=== PATIENT | female | born 1950 | race Caucasian/White ===

== ENCOUNTER 2020-02-17 15:41 | Observation (INO) | payer MEDICARE ==
[2020-02-17] MEDS ORDERED: KETOROLAC 30 MG/ML VIAL IVP STA (16:09)
[2020-02-17] MEDS ORDERED: ONDANSETRON 4 MG/2 ML VIAL IVP STA (16:09)
--- NOTE | 2020-02-17 16:11 | ED Physician Documentation ---
PD HPI ABD PAIN - Stated complaint Stated Complaint: ABD PX, NAUSEA, FEVER - Chief complaint Chief Complaint: Abd Pain - History obtained from History obtained from: Patient (This is a very pleasant 69-year-old woman status post remote cholecystectomy, otherwise very healthy who developed central abdominal pain that woke her up at 2 AM subsequently the pain radiated to the right lower quadrant and was associated with nausea but no vomiting and fever. She denies any urinary complaints or trouble with bowel movements.) Review of Systems Ten Systems: 10 systems reviewed and negative Constitutional: reports: Fever, Chills Cardiac: denies: Chest pain / pressure, Palpitations Respiratory: denies: Dyspnea, Cough PD PAST MEDICAL HISTORY - Present Medications Home Medications: Ambulatory Orders Medication Instructions Recorded Confirmed No Known Home Medications 02/17/20 02/17/20 - Allergies Allergies/Adverse Reactions: Allergies Allergy/AdvReac Type Severity Reaction Status Date / Time Iodinated Contrast Media AdvReac Hives Verified 02/17/20 15:56 PD ED PE NORMAL - Vitals Vital signs reviewed: Yes - General General: Alert and oriented X 3, No acute distress - HEENT HEENT: PERRL, EOMI - Neck Neck: Supple, no meningeal sign, No bony TTP - Cardiac Cardiac: RRR, No murmur - Respiratory Respiratory: No respiratory distress, Clear bilaterally - Abdomen Abdomen: Normal bowel sounds, Soft, Other (She is focally exquisitely tender in the right lower quadrant with positive Rovsing and psoas sign.) - Back Back: No CVA TTP, No spinal TTP - Derm Derm: Normal color, Warm and dry - Extremities Extremities: No edema, No calf tenderness / cord - Neuro Neuro: Alert and oriented X 3, Normal speech Results - Vitals Vitals: Vital Signs - 24 hr 02/17/20 02/17/20 15:46 19:20 Temperature 37.8 C H Heart Rate 100 98 Respiratory 20 16 Rate Blood Pressure 136/82 H 141/79 H O2 Saturation 98 99 Oxygen O2 Source Room air - Labs Labs: Laboratory Tests 02/17/20 02/17/20 02/17/20 16:30 17:30 17:30 WBC 10.6 RBC 4.14 L Hgb 12.2 Hct 38.0 MCV 91.8 MCH 29.5 MCHC 32.1 RDW 13.4 Plt Count 182 MPV 11.1 H Neut # (Auto) 8.5 H Lymph # (Auto) 1.3 L [place] # (Auto) 0.8 Eos # (Auto) 0.0 Baso # (Auto) 0.0 Absolute Nucleated RBC 0.00 Nucleated RBC % 0.0 Sodium 137 Potassium 3.5 Chloride 108 Carbon Dioxide 21 Anion Gap 8.0 BUN 14 Creatinine 0.5 Estimated GFR (MDRD) 123 Glucose 101 H Calcium 8.9 Total Bilirubin 1.0 AST 13 ALT 11 Alkaline Phosphatase 52 Total Protein 7.0 Albumin 4.0 Globulin 3.0 Albumin/Globulin Ratio 1.3 Lipase 26 Urine Color YELLOW Urine Clarity CLEAR Urine pH 6.0 Ur Specific [place] >=1.030 H Urine Protein NEGATIVE Urine Glucose (UA) NEGATIVE Urine Ketones >=80 H Urine Occult Blood NEGATIVE Urine Nitrite NEGATIVE Urine Bilirubin NEGATIVE Urine Urobilinogen 0.2 (NORMAL) Ur Leukocyte Esterase NEGATIVE Ur Microscopic Review NOT INDICATED Urine Culture Comments NOT INDICATED - Rads (name of study) CT abdomen and pelvis done without IV contrast due 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 Spoke with the on-call surgeon, Dr. Barraza around 7:30 PM who will come in to see the patient. Requested Shannan in the interim. Departure - Departure Disposition: ED Transfer to [facility] Clinical Impression: Appendicitis Qualifiers: Appendicitis type: acute appendicitis Acute appendicitis type: with localized peritonitis Appendicitis gangrene presence: without gangrene Appendicitis perforation presence: without perforation Appendicitis abscess presence: without abscess Qualified Code(s): K35.30 - Acute appendicitis with localized peritonitis, without perforation or gangrene Condition: Stable
[2020-02-17 16:43] LABS: GLUCOSE, URINE (UA) NEGATIVE (NEGATIVE); KETONES,URINE (UA) >=80 mg/dL (NEGATIVE); LEUKOCYTE ESTERASE, URINE NEGATIVE (NEGATIVE); NITRITE,URINE NEGATIVE (NEGATIVE); OCCULT BLOOD,URINE NEGATIVE (NEGATIVE); PROTEIN,URINE NEGATIVE (NEGATIVE); UROBILINOGEN,URINE 0.2 (NORMAL) E.U./dL (NORMAL)
[2020-02-17 16:47] LABS: BILIRUBIN,URINE NEGATIVE (NEGATIVE); CLARITY,URINE CLEAR (CLEAR); ICTOTEST,URINE NEGATIVE
[2020-02-17] MEDS ORDERED: IOVERSOL 320 100 ML VIAL IVP ONE (16:55)
[2020-02-17] MEDS ORDERED: SODIUM CHLORIDE 0.9% 1,000 ML IV ONE (16:59)
[2020-02-17 17:39] LABS: BASOPHILS % (AUTO) 0.3 %; EOSINOPHILS % (AUTO) 0.3 %; HGB - HEMOGLOBIN 12.2 g/dL (12.0-16.0); LYMPHOCYTES # (AUTO) 1.3 10^3/uL (1.5-3.5); LYMPHOCYTES % (AUTO) 11.8 %; MEAN CORPUSCULAR HEMOGLOBIN 29.5 pg (27.0-31.0); MEAN CORPUSCULAR HGB CONC 32.1 g/dL (32.0-36.0); MEAN CORPUSCULAR VOLUME 91.8 fL (81.0-99.0); MEAN PLATELET VOLUME 11.1 fL (7.9-10.8); MONOCYTES # (AUTO) 0.8 10^3/uL (0.0-1.0); MONOCYTES % (AUTO) 7.2 %; NEUTROPHILS # (AUTO) 8.5 10^3/uL (1.5-6.6); NEUTROPHILS % (AUTO) 80.1 %; PLT - PLATELET COUNT 182 10^3/uL (130-450); RED BLOOD COUNT 4.14 10^6/uL (4.20-5.40); RED CELL DISTRIBUTION WIDTH 13.4 % (12.0-15.0); WHITE BLOOD COUNT 10.6 x10^3/uL (4.8-10.8)
[2020-02-17 17:55] LABS: ALBUMIN/GLOBULIN RATIO 1.3 (1.0-2.2); CALCIUM 8.9 mg/dL (8.5-10.3); CREATININE 0.5 mg/dL (0.4-1.0)
--- NOTE | 2020-02-17 19:26 | CT Report ---
Reason: RLQ pain Procedure Date: 02/17/2020 Accession Number: [id number] / [id number] Procedure: CT - Abdomen/Pelvis WO CPT Code: Final Report FULL RESULT: EXAM: CT ABDOMEN AND PELVIS (CT KUB) EXAM DATE: 02/17/2020 06:34 PM. CLINICAL HISTORY: RLQ pain. COMPARISONS: None. TECHNIQUE: Routine axial helical CT imaging was performed through the abdomen and pelvis without IV contrast. Reconstructions: Coronal and sagittal. In accordance with CT protocol optimization, one or more of the following dose reduction techniques were utilized for this exam: automated exposure control, adjustment of mA and/or KV based on patient size, or use of iterative reconstructive technique. FINDINGS: Limited evaluation of solid abdominal organs without intravenous contrast. Lung Bases: Unremarkable. Right Kidney/Ureter: There are 2-3 punctate nonobstructing stones measuring about 2 mm. No obstructing stone or hydronephrosis. Left Kidney/Ureter: There is a punctate 2 mm nonobstructing stone inferiorly. No obstructing stone or hydronephrosis. Other Solid Organs: Noncontrast images of the solid organs are grossly unremarkable. Gallbladder/Bile Ducts: Cholecystectomy. Peritoneal Cavity: The appendix is dilated with surrounding inflammation. No abscess. No free fluid or free air. Mild diverticulosis. Small hiatal hernia. No evidence of a bowel obstruction. Pelvic Organs: No bladder stone or wall thickening. The uterus and adnexa are unremarkable. Vasculature: Minimal atherosclerosis. No aortic aneurysm. Other: None. IMPRESSION: Acute appendicitis. RADIA
[2020-02-17] MEDS ORDERED: PIPERACILLIN/TAZOBACTAM 3.375 GM in SODIUM CHLORIDE 0.9% MINIBAG 100 ML IV STA (19:37)
--- NOTE | 2020-02-17 20:17 | CONSULTATION NOTE ---
Referring Provider Name of Referring Provider:: ED Dr. Vergara Consult Date: 02/17/20 Chief Complaint - Chief Complaint Chief Complaint: abd pain History of Present Illness - History of Present Illness HPI Comment/Other: Pleasant 69yo F awoken early this AM with pain in her lower right abdomen. It progressed through the day. Only similar pain she has experienced was kidney stones but it is not the same. She came in for evaluation. CT A/P shows appendicitis. No leukocytosis or fevers but diffusely tender, significantly in RLQ. Only abd surgery was a lap kathy which she tolerated well. No SOB walking up a flight of stairs. No history of anesthesia or bleeding issues in her or family members. History - Past Surgical History General: reports: Cholecystectomy Meds/Allgy - Home Medications Home Medications: Ambulatory Orders Medication Instructions Recorded Confirmed No Known Home Medications 02/17/20 02/17/20 - Allergies Allergies/Adverse Reactions: Allergies Allergy/AdvReac Type Severity Reaction Status Date / Time Iodinated Contrast Media AdvReac Hives Verified 02/17/20 15:56 Review of Systems - Gastrointestinal Gastrointestinal: reports: Abdominal pain - All Other Systems All Other Systems: reports: Reviewed and negative Exam - Vital Signs Reviewed Vital Signs: Yes Vital Signs: Vital Signs x48h Temp Pulse Resp BP Pulse Ox 02/17/20 19:20 98 16 141/79 H 99 02/17/20 15:46 37.8 C H 100 20 136/82 H 98 - Physical Exam Comments/Other: AAO, NAD, overweight female EOMI, MMM unlabored RA soft, non-distended, mild diffuse tenderness with increased focal pain over RLQ MAEW skin warm and dry Conclusion and Plan - Lab Results Laboratory Results 02/17/20 17:30: Sodium 137, Potassium 3.5, Chloride 108, Carbon Dioxide 21, Anion Gap 8.0, BUN 14, Creatinine 0.5, Estimated GFR (MDRD) 123, Glucose 101 H, Calcium 8.9, Total Bilirubin 1.0, AST 13, ALT 11, Alkaline Phosphatase 52, Total Protein 7.0, Albumin 4.0, Globulin 3.0, Albumin/Globulin Ratio 1.3, Lipase 26 02/17/20 17:30: WBC 10.6, RBC 4.14 L, Hgb 12.2, Hct 38.0, MCV 91.8, MCH 29.5, MCHC 32.1, RDW 13.4, Plt Count 182, MPV 11.1 H, Neut # (Auto) 8.5 H, Lymph # (Auto) 1.3 L, [place] # (Auto) 0.8, Eos # (Auto) 0.0, Baso # (Auto) 0.0, Absolute Nucleated RBC 0.00, Nucleated RBC % 0.0 02/17/20 16:30: Urine Color YELLOW, Urine Clarity CLEAR, Urine pH 6.0, Ur Specific [place] >=1.030 H, Urine Protein NEGATIVE, Urine Glucose (UA) NEGATIVE, Urine Ketones >=80 H, Urine Occult Blood NEGATIVE, Urine Nitrite NEGATIVE, Urine Bilirubin NEGATIVE, Urine Urobilinogen 0.2 (NORMAL), Ur Leukocyte Esterase NEGAT NANCY, Ur Microscopic Review NOT INDICATED, Urine Culture Comments NOT INDICATED - Diagnostic Imaging Results Diagnostic Imaging Results: positive: Final report reviewed, Read contemporaneously - Diagnosis Diagnosis: Appendicitis - Plan Plan: - acute appendicitis, thoroughly discussed options especially given setting of COVID crisis including surgery versus antibiotics and close follow up --> given her diffuse abd pain, I am hesitant to rely on antibiotics and think it will prolong exposures and resource utilization by requiring more hospital time up front then a likely surgery down the line --> will admit, angela started in ED, plan for lap appendectomy in the AM with likely discharge after --> all R/B/A discussed and pt wishes to proceed with plan - CLD now, NPO after midnight - prn anti-emetics and pain meds
[2020-02-17] MEDS ORDERED: KETOROLAC 15 MG/ML VIAL IVP PRN (20:21)
[2020-02-17] MEDS ORDERED: ACETAMINOPHEN 325 MG TABLET PO PRN (20:21)
[2020-02-17] MEDS ORDERED: MORPHINE 2 MG/ML CARPUJECT IVP PRN (20:21)
[2020-02-17] MEDS ORDERED: SODIUM CHLORIDE FLUSH 0.9% 10 ML SYRINGE IVP PRN (20:21)
[2020-02-17] MEDS ORDERED: ONDANSETRON 4 MG/2 ML VIAL IVP PRN (20:25)
[2020-02-17] MEDS: SODIUM CHLORIDE 0.9% 1,000 ML IV SCH (21:33)
[2020-02-17] MEDS: SODIUM CHLORIDE FLUSH 0.9% 10 ML SYRINGE IVP SCH (21:33)
[2020-02-17] MEDS: PIPERACILLIN/TAZOBACTAM 3.375 GM in SODIUM CHLORIDE 0.9% MINIBAG 100 ML IV SCH (23:48)
[2020-02-18] MEDS: SODIUM CHLORIDE 0.9% 1,000 ML IV SCH (07:05)
[2020-02-18] MEDS ORDERED: LIDOCAINE 1%-EPI 1:100000 20 ML MDV ONE (07:31)
--- NOTE | 2020-02-18 07:54 | PHARMACY PROGRESS NOTE ---
- Best Possible Medication History Admit Date and Time: 02/17/202020 Processed by: Nursing Medication History completed: Yes As the person ultimately responsible for medication therapy, providers are able to order a medication from an existing home medication list in [facility] via the "Reconcile Routine" prior to Confirmation of that medication by windows desktop support. Such practice is discouraged except when the physician, in their clinical judgment, deems that a medical need exists for a medication without regard to previous use.
[2020-02-18] MEDS: PIPERACILLIN/TAZOBACTAM 3.375 GM in SODIUM CHLORIDE 0.9% MINIBAG 100 ML IV SCH (07:58)
[2020-02-18] MEDS: SODIUM CHLORIDE FLUSH 0.9% 10 ML SYRINGE IVP SCH (07:59)
--- NOTE | 2020-02-18 08:25 | ANESTHESIA ---
Pre-Anesthesia VS, & Labs - Diagnosis Diagnosis Appendicitis - Procedure Laparoscopic appendectomy Vital Signs: Temp Pulse Resp BP Pulse Ox 36.7 C 88 16 140/72 H 94 02/18/20 07:20 02/18/20 07:20 02/18/20 07:20 02/18/20 07:20 02/18/20 07:20 Height 5 ft 6.5 in Weight (kg) 73.5 kg Body Mass Index 25.7 - NPO >8 hours - Is Patient ?: No - Lab Results Current Lab Results: Laboratory Tests 02/17/20 17:30: Sodium 137, Potassium 3.5, Chloride 108, Carbon Dioxide 21, Anion Gap 8.0, BUN 14, Creatinine 0.5, Estimated GFR (MDRD) 123, Glucose 101 H, Calcium 8.9, Total Bilirubin 1.0, AST 13, ALT 11, Alkaline Phosphatase 52, Total Protein 7.0, Albumin 4.0, Globulin 3.0, Albumin/Globulin Ratio 1.3, Lipase 26 02/17/20 17:30: WBC 10.6, RBC 4.14 L, Hgb 12.2, Hct 38.0, MCV 91.8, MCH 29.5, MCHC 32.1, RDW 13.4, Plt Count 182, MPV 11.1 H, Neut # (Auto) 8.5 H, Lymph # (Auto) 1.3 L, [place] # (Auto) 0.8, Eos # (Auto) 0.0, Baso # (Auto) 0.0, Absolute Nucleated RBC 0.00, Nucleated RBC % 0.0 Lab results reviewed: Yes Fish Bones: 02/17/20 17:30 02/17/20 17:30 Home Medications and Allergies Home Medications: Ambulatory Orders No Known Home Medications 02/17/20 Active Medications Acetaminophen (Tylenol) 325 mg PO Q4HR PRN PRN Reason: Pain or Fever > 38C (100.4F) Piperacillin Sod/Tazobactam (Sod 3.375 gm/ Sodium Chloride) 100 mls @ 25 mls/hr IV Q8H [facility] Last Admin: 02/18/20 07:58 Dose: 25 mls/hr Sodium Chloride (Normal Saline 0.9%) 1,000 mls @ 100 mls/hr IV .Q10H [facility] Last Admin: 02/18/20 07:05 Dose: 100 mls/hr Ketorolac Tromethamine (Toradol Inj (15mg)) 15 mg IVP Q6HR PRN PRN Reason: PAIN Stop: 02/22/20 20:20 Last Admin: 02/17/20 23:58 Dose: 15 mg Morphine Sulfate (Morphine (Carpuject)) 2 mg IVP Q2HR PRN PRN Reason: PAIN Ondansetron HCl (Zofran Inj) 4 mg IVP Q4HR PRN PRN Reason: Nausea / Vomiting Last Admin: 02/18/20 07:04 Dose: 4 mg Sodium Chloride (Normal Saline Flush 0.9%) 10 ml IVP 0100,0900,1700 SIVAN Last Admin: 02/18/20 07:59 Dose: 10 ml Sodium Chloride (Normal Saline Flush 0.9%) 10 ml IVP PRN PRN PRN Reason: NEEDED PER PROVIDER ORDERS No Known Home Medications 02/17/20 Allergies/Adverse Reactions: Allergies Allergy/AdvReac Type Severity Reaction Status Date / Time Iodinated Contrast Media AdvReac Hives Verified 02/17/20 15:56 Anes History & Medical History - Anesthetic History Anesthesia Complications: reports: No previous complications Family history of Anesthesia Complications: Denies Family history of Malignant Hyperthermia: Denies - Medical History Cardiovascular: reports: None Pulmonary: reports: None Gastrointestinal: reports: None Urinary: reports: None Neuro: reports: None Musculoskeletal: reports: None Endocrine/Autoimmune: reports: None Blood Disorders: reports: None Skin: reports: None Smoking Status: Never smoker - Surgical History General: Cholecystectomy Exam General: Alert, Oriented x3, Cooperative Dental: WNL Mouth Openin Fingerbreadth Neck Mobility: Normal Mallampati classification: II Thyromental Distance: greater than 6 cm Respiratory: Lungs clear, Normal breath sounds, No respiratory distress, No accessory muscle use Cardiovascular: Regular rate Neurological: Normal speech Mental/Cognitive Status: Alert/Oriented X3, Normal for patient Cognitive Status: Within normal limits Plan Anesthesia Type: General Consent for Procedure(s) Verified and Reviewed: Yes Code Status: Attempt Resuscitation ASA classification: 2-Mild systemic disease Is this case an emergency?: No
[2020-02-18] MEDS ORDERED: KETOROLAC 30 MG/ML VIAL IVP ONE (08:57)
[2020-02-18] MEDS ORDERED: DEXAMETHASONE 4 MG/ML VIAL IVP ONE (08:57)
[2020-02-18] MEDS ORDERED: PROPOFOL 200 MG/20 ML VIAL IVP ONE (08:57)
[2020-02-18] MEDS ORDERED: ROCURONIUM 50 MG/5 ML VIAL IVP ONE (08:57)
[2020-02-18] MEDS ORDERED: NEOSTIGMINE 1 MG/1 ML 10 ML MDV IVP ONE (08:57)
[2020-02-18] MEDS ORDERED: MIDAZOLAM 2 MG/2 ML VIAL IVP ONE (08:57)
[2020-02-18] MEDS ORDERED: fentaNYL 100 MCG/2 ML VIAL IVP ONE (08:57)
[2020-02-18] MEDS ORDERED: ONDANSETRON 4 MG/2 ML VIAL IVP ONE (08:57)
[2020-02-18] MEDS ORDERED: LIDOCAINE-MPF 2% 5 ML VIAL IM ONE (08:57)
[2020-02-18] MEDS ORDERED: GLYCOPYRROLATE 1 MG/5 ML VIAL IVP ONE (08:57)
[2020-02-18] MEDS ORDERED: LACTATED RINGERS 1,000 ML IV ONE ×2 (08:57→10:55)
[2020-02-18] MEDS ORDERED: LIDOCAINE 1%-EPI 1:100000 20 ML MDV SUBQ ONE (09:33)
[2020-02-18] MEDS ORDERED: HYDROcod/ACETAM 5/325 MG TABLET PO PRN (10:25)
--- NOTE | 2020-02-18 10:34 | OPERATIVE REPORT ---
Operative Report - General Admit Date: 02/17/20 Pre-Op Diagnosis: Appendicitis Procedure Performed: Laparoscopic Appenectomy Laparoscopic Lysis of Adhesions Post Op Diagnosis: same - Procedure Note Primary Surgeon: Esme Barraza MD Anesthesia Provider: Andrea Rodriguez CRNA Anesthesia Technique: General ET tube Pathology: appendix Estimated Blood Loss (mL): 2 Indications: 69yo F with progressive abdominal pain found to have appendicitis. All risks, benefits, and alternatives to surgery are discussed and pt wishes to proceed. Findings: inflamed retrocecal appendix with focal necrosis near base; straw colored fluid in pelvis Complications: none - Other Other Information/Narrative: The patient was taken to the operating room and placed on the operating table in supine position. The abdomen was prepped and draped in sterile fashion and a timeout performed with the team present. Using a 15 blade scalpel and after infiltration with local anesthesia, a small 5 mm incision was made just to the left of the umbilicus. Using a 5 mm Optiview camera port, the laparoscope was inserted into the abdomen. Once confirmed to be within the peritoneum, the abdomen was insufflated with air. Diagnostic laparoscopy showed no injury from initial trocar placement. Under direct vision and after infiltration with local anesthesia, an additional 5 mm trocar was then placed in the midline just above the pubic hairline and a 12 mm trocar was then placed in the left lower quadrant. The patient was then placed in left side down and in Trendelenberg position. The small bowel was retracted to the left side of the patient. An adhesion along the right abdominal wall was taken down with cautery. The appendix was identified at the base of the cecum in a retrocecal position. It was dark and inflamed with focal necrosis near the base. Cautery was used to release the retroperitoneal attachments and separate the inflamed appendix and mesoappendix from the cecum. Once freed, the appendix was grasped with a blunt grasper. Using a [place] dissector, a window was made between the mesoappendix and the appendix itself. Using an Endo BERTHA stapler with a tissue load, the appendix was transected out at the base below the area of necrosis. Using a vascular load, the mesoappendix was then transected with the Endo BERTHA stapler as well. The staple lines were noted to be intact with no evidence of leakage or bleeding. The appendix was placed into an EndoCatch retrieval bag and removed through the 12 mm port without any difficulty. Straw colored fluid and minimal blood was suctioned free and irrigated thoroughly. The 12mm port site fascia was closed using an EndoClose device and an 0-vicryl suture. The remainder of the local anesthesia was injected over each of the fascial incision sites. The secondary trocars were then removed under direct vision noting no bleeding. The abdomen was allowed to desufflate fully and the final trocar was removed. The skin incisions were then closed using 4-0 Monocryl in an interrupted subcuticular fashion. All counts were correct at the end of the procedure. The abdomen was cleaned and dried. Dermabond was placed over the incisions. The patient was awakened and taken to postanesthesia care unit in stable condition.
[2020-02-18] MEDS ORDERED: ACETAMINOPHEN 1,000 MG/100 ML 100 ML IV ONE (10:44)
[2020-02-18 13:12] VITALS: BP 122/62
--- NOTE | 2020-02-20 11:27 | MISCELLANEOUS PROVIDER NOTE ---
Miscellaneous Provider Note - - Note: SURGERY PROGRESS NOTE 02/18/20 Doing well, no issues overnight. AAO, NAD EOMI, MMM unlabored RA soft, non-distended, moderate ttp abdomen MAEW NPO, MIVFs, zosyn scheduled. Plan for lap appendectomy today. No further questions. Informed consent signed.
--- NOTE | 2020-02-20 11:29 | DISCHARGE SUMMARY ---
"Discharge Summary Admit Date: 02/17/20 Discharge Date: 02/18/20 Discharging Provider: Madi Code Status: Attempt Resuscitation Condition at Discharge: Stable Discharge Disposition: 01 Home, Self Care - HPI History of Present Illness: One day history of increasing abdominal pain. - CONSULTS | PROCEDURES Procedures: Laparoscopic Appendectomy - HOSPITAL COURSE Hospital Course: Presents with one day of abdominal pain, increasing through day. CT shows appendicitis. Admitted overnight and antibiotics started. Underwent lap appendectomy next morning and discharged post op once criteria met. - ALLERGIES Allergies/Adverse Reactions: Allergies Allergy/AdvReac Type Severity Reaction Status Date / Time Iodinated Contrast Media AdvReac Hives Verified 02/17/20 15:56 - MEDICATIONS Home Medications: Ambulatory Orders Medication Instructions Recorded Confirmed Docusate Sodium 100 mg PO BID #60 capsule 02/18/20 Ibuprofen 800 mg PO TID #60 tablet 02/18/20 oxyCODONE [Roxicodone] 5 mg PO Q6H PRN #20 tablet 02/18/20 - LABS Result Diagrams: 02/17/20 17:30 02/17/20 17:30 - FOLLOW UP Follow Up: Phone visit with Dr. Barraza in 2 weeks unless issues before, call prn. - TIME SPENT Time Spent in Discharge (Minutes): 10"
== END 2020-02-18 16:10 | disposition home or self-care (01) ==
LOC: ED 15:41 → MS2 20:21
PROVIDERS: ADMIT Surgery; ATTEND Surgery
PROC: 0DTJ4ZZ Resection of Appendix, Percutaneous Endoscopic Approach (ICD-10-PCS; principal; 2020-02-17)
DX: K35.80 Unspecified acute appendicitis (principal); E66.3 Overweight; Z68.25 Body mass index [BMI] 25.0-25.9, adult
CPT/HCPCS: 36415; 44970; 74176; 80053; 81003; 83690; 85025; 96361; 96365; 96375; 99284; 99285; G0378; J0131; J7120; 81001; 83605; 87086